=== PATIENT | female | born 1965 | race Two or more races ===

== ENCOUNTER 2017-10-22 12:55 | Emergency (ER) | payer OTHER ==
[~2017-10-22] VITALS: Ht 165.1 cm; Wt 93.5 kg
[~2017-10-22 12:55] MED LIST: OXYC-302 PO; SENN1TAB68 PO
[2017-10-22] MEDS ORDERED: MORPHINE SULFATE 4 MG/ML, 1ML ONE (13:55)
[2017-10-22] MEDS ORDERED: SODIUM CHLORIDE FLUSH 10ML SYR IVF ONE (14:00)
[2017-10-22] MEDS ORDERED: MORPHINE SULFATE 4 MG/ML, 1ML IVPush PRN (14:00)
[2017-10-22 14:04] LABS: BASOPHILS # (AUTO) 0.08 x10^3/uL (0-0.1); BASOPHILS % (AUTO) 1 % (0-1); EOSINOPHILS # (AUTO) 0.37 x10^3/uL (0-0.4); EOSINOPHILS % (AUTO) 4 % (1-7); LYMPHOCYTES # (AUTO) 2.61 x10^3/uL (1-3.4); LYMPHOCYTES % (AUTO) 28 % (22-44); MD NO; MEAN CORPUSCULAR HGB CONC 33.8 g/dL (32.4-35.8); MEAN CORPUSCULAR VOLUME 91.6 fL (80-100); MEAN PLATELET VOLUME 7.7 fL (7.4-10.4); MONOCYTES # (AUTO) 0.66 x10^3/uL (0.2-0.8); MONOCYTES % (AUTO) 7 % (2-9); NEUTROPHILS # (AUTO) 5.61 x10^3/uL (1.8-6.8); NEUTROPHILS % (AUTO) 60 % (42-75); PLATELET COUNT 201 x10^3/uL (130-400); RED CELL DISTRIBUTION WIDTH 14.2 % (9.6-15.2)
[2017-10-22 14:11] LABS: INTERNATIONAL NORMALIZED RATIO 0.96 (0.93-1.1)
[2017-10-22 14:31] LABS: ALANINE AMINOTRANSFERASE 20 U/L (12-78); ALBUMIN 3.5 g/dL (3.4-5.0); ANION GAP 7 mmol/L (5-15); CALCIUM 8.7 mg/dL (8.5-10.1); CHLORIDE 110 mmol/L (98-107); CREATININE 0.81 mg/dL (0.55-1.02)
[2017-10-22 14:35] LABS: ALKALINE PHOSPHATASE 76 U/L (45-117); BILIRUBIN,TOTAL 0.3 mg/dL (0.2-1.0); TOTAL PROTEIN 7.4 g/dL (6.4-8.2)
[2017-10-22] MEDS ORDERED: OMNIPAQUE 350 MG/ML, 100ML BOTTLE ONE (15:28)
[2017-10-22 17:00] VITALS: BP 177/91
== END 2017-10-22 18:06 | disposition home or self-care (01) ==
LOC: ED 15:52
DX: I80.8 Phlebitis and thrombophlebitis of other sites (principal); R42 Dizziness and giddiness; F17.200 Nicotine dependence, unspecified, uncomplicated; Z90.49 Acquired absence of other specified parts of digestive tract
CPT/HCPCS: 36415; 74177; 80053; 83690; 84703; 85025; 85610; 85730; 96374; 99285; Q9967

== ENCOUNTER 2017-11-21 18:54 | Emergency (ER) | payer OTHER ==
[~2017-11-21] VITALS: Ht 165.1 cm; Wt 91.0 kg
[2017-11-21 19:45] LABS: BASOPHILS # (AUTO) 0.08 x10^3/uL (0-0.1); BASOPHILS % (AUTO) 1 % (0-1); EOSINOPHILS # (AUTO) 0.42 x10^3/uL (0-0.4); EOSINOPHILS % (AUTO) 4 % (1-7); LYMPHOCYTES # (AUTO) 3.18 x10^3/uL (1-3.4); LYMPHOCYTES % (AUTO) 32 % (22-44); MD NO; MEAN CORPUSCULAR HEMOGLOBIN 30.3 pg (27.0-34.8); MEAN CORPUSCULAR HGB CONC 33.2 g/dL (32.4-35.8); MEAN CORPUSCULAR VOLUME 91.1 fL (80-100); MEAN PLATELET VOLUME 7.7 fL (7.4-10.4); MONOCYTES # (AUTO) 0.73 x10^3/uL (0.2-0.8); MONOCYTES % (AUTO) 7 % (2-9); NEUTROPHILS # (AUTO) 5.51 x10^3/uL (1.8-6.8); NEUTROPHILS % (AUTO) 56 % (42-75); PLATELET COUNT 226 x10^3/uL (130-400); RED BLOOD COUNT 4.49 x10^6/uL (3.82-5.3); RED CELL DISTRIBUTION WIDTH 14.1 % (9.6-15.2)
[2017-11-21 19:54] LABS: ALANINE AMINOTRANSFERASE 19 U/L (12-78); ALBUMIN 3.3 g/dL (3.4-5.0); ANION GAP 7 mmol/L (5-15); CALCIUM 8.8 mg/dL (8.5-10.1); CHLORIDE 110 mmol/L (98-107); CREATININE 0.78 mg/dL (0.55-1.02)
[2017-11-21 19:56] LABS: ALKALINE PHOSPHATASE 71 U/L (45-117); BILIRUBIN,TOTAL 0.3 mg/dL (0.2-1.0); TOTAL PROTEIN 7.1 g/dL (6.4-8.2)
[2017-11-21 20:23] VITALS: BP 124/66
== END 2017-11-21 21:12 | disposition home or self-care (01) ==
LOC: ED 21:05
DX: R20.2 Paresthesia of skin (principal); R51 Headache
CPT/HCPCS: 36415; 70450; 80053; 85025; 93005; 99285

== ENCOUNTER 2018-01-12 17:55 | Inpatient (IN) | payer OTHER ==
[~2018-01-12] VITALS: Ht 165.1 cm; Wt 97.4 kg
[2018-01-12] MEDS ORDERED: DIPHENHYDRAMINE 50 MG/ML, 1ML ONE (18:56)
[2018-01-12] MEDS ORDERED: MORPHINE SULFATE 4 MG/ML, 1ML ONE (18:56)
[2018-01-12] MEDS ORDERED: CARBAMAZEPINE 200 MG TABLET ONE (18:56)
[2018-01-12] MEDS ORDERED: ONDANSETRON 2MG/ML, 2ML ONE (18:57)
[2018-01-12] MEDS ORDERED: METOCLOPRAMIDE 5 MG/ML, 2ML ONE (18:58)
[2018-01-12 19:00] LABS: BASOPHILS # (AUTO) 0.05 x10^3/uL (0-0.1); BASOPHILS % (AUTO) 1 % (0-1); EOSINOPHILS # (AUTO) 0.25 x10^3/uL (0-0.4); EOSINOPHILS % (AUTO) 3 % (1-7); LYMPHOCYTES # (AUTO) 2.02 x10^3/uL (1-3.4); LYMPHOCYTES % (AUTO) 24 % (22-44); MD NO; MEAN CORPUSCULAR HEMOGLOBIN 31.2 pg (27.0-34.8); MEAN CORPUSCULAR VOLUME 91.5 fL (80-100); MEAN PLATELET VOLUME 7.6 fL (7.4-10.4); MONOCYTES # (AUTO) 0.59 x10^3/uL (0.2-0.8); MONOCYTES % (AUTO) 7 % (2-9); NEUTROPHILS # (AUTO) 5.38 x10^3/uL (1.8-6.8); NEUTROPHILS % (AUTO) 65 % (42-75); PLATELET COUNT 193 x10^3/uL (130-400); RED BLOOD COUNT 4.63 x10^6/uL (3.82-5.3); RED CELL DISTRIBUTION WIDTH 14.5 % (9.6-15.2)
[2018-01-12] MEDS ORDERED: ONDANSETRON 2MG/ML, 2ML IVPush ONE (19:00)
[2018-01-12] MEDS ORDERED: CARBAMAZEPINE 200 MG TABLET PO ONE (19:00)
[2018-01-12] MEDS ORDERED: MORPHINE SULFATE 4 MG/ML, 1ML IVPush PRN (19:00)
[2018-01-12] MEDS ORDERED: DIPHENHYDRAMINE 50 MG/ML, 1ML IVPush ONE (19:00)
[2018-01-12] MEDS ORDERED: METOCLOPRAMIDE 5 MG/ML, 2ML IVPush ONE (19:00)
[2018-01-12 19:12] LABS: ALANINE AMINOTRANSFERASE 19 U/L (12-78); ALBUMIN 3.8 g/dL (3.4-5.0); ANION GAP 9 mmol/L (5-15); CALCIUM 8.4 mg/dL (8.5-10.1); CHLORIDE 110 mmol/L (98-107)
[2018-01-12 19:16] LABS: ALKALINE PHOSPHATASE 64 U/L (45-117); BILIRUBIN,TOTAL 0.5 mg/dL (0.2-1.0); TOTAL PROTEIN 7.6 g/dL (6.4-8.2); TROPONIN I < 0.015 ng/mL (0.000-0.045)
[2018-01-12 19:46] LABS: AMPHETAMINE SCREEN, URINE Negative (Negative); BARBITURATE SCREEN, URINE Negative (Negative); BENZODIAZEPINE SCREEN, URINE Negative (Negative); CANNABINOID SCREEN, URINE Negative (Negative); COCAINE SCREEN, URINE Negative (Negative); METHADONE SCREEN, URINE Negative (Negative); OPIATE SCREEN, URINE Negative (Negative)
[2018-01-12] MEDS ORDERED: CARB200T PO (21:04)
[2018-01-12] MEDS ORDERED: GABA300C10 PO (21:04)
[2018-01-12] MEDS ORDERED: SODIUM CHLORIDE 0.9% 1,000 ML IV SCH (21:04)
[2018-01-12] MEDS ORDERED: NITROGLYCERIN 0.4 MG BOTTLE (25 TABS) SL PRN (21:30)
[2018-01-12] MEDS ORDERED: ONDANSETRON ODT 4 MG PO PRN (21:30)
[2018-01-12] MEDS ORDERED: POLYETHYLENE GLYCOL 17 GM PACKET PO PRN (21:30)
[2018-01-12 22:14] VITALS: BP 114/76
[2018-01-12] MEDS: NICOTINE 14MG/24 HR PATCH.TD24 TD SCH (23:04)
[2018-01-12] MEDS: ENOXAPARIN 30 MG/0.3 ML SQ SCH (23:04)
[2018-01-13 02:21] VITALS: BP 114/77
[2018-01-13 02:33] LABS: CHLORIDE 111 mmol/L (98-107)
[2018-01-13 02:34] LABS: TROPONIN I < 0.015 ng/mL (0.000-0.045)
[2018-01-13 02:46] LABS: ANION GAP 10 mmol/L (5-15); CALCIUM 8.1 mg/dL (8.5-10.1)
[2018-01-13 06:24] VITALS: BP 114/77
[2018-01-13] MEDS ORDERED: MIDAZOLAM 1 MG/ML, 5ML ONE (08:53)
[2018-01-13] MEDS ORDERED: NALOXONE 1 MG/ML, 2ML ONE (08:53)
[2018-01-13] MEDS ORDERED: FLUMAZENIL 0.1 MG/1 ML, 5ML ONE (08:53)
[2018-01-13] MEDS ORDERED: FENTANYL PF 100 MCG/2ML ONE (08:53)
[2018-01-13] MEDS ORDERED: CARBAMAZEPINE 200 MG TABLET PO SCH ×2 (09:00)
[2018-01-13] MEDS ORDERED: GABAPENTIN 300 MG CAPSULE PO SCH (09:00)
[2018-01-13] MEDS ORDERED: GADOBUTROL 10 MMOL/10 ML VIAL ONE (09:57)
[2018-01-13] MEDS ORDERED: REGADENOSON 0.4 MG/5 ML SYRINGE ONE (11:26)
[2018-01-13 12:16] VITALS: BP 130/85
[2018-01-13] MEDS: morphine SULFATE 10 MG/ML, 1ML IVPush PRN (15:47)
[2018-01-13 17:30] VITALS: BP 123/77
[2018-01-13] MEDS: ACETAMINOPHEN 325 MG TABLET PO PRN (19:20)
[2018-01-13] MEDS: NICOTINE 14MG/24 HR PATCH.TD24 TD SCH (20:49)
[2018-01-13] MEDS: ENOXAPARIN 30 MG/0.3 ML SQ SCH (20:49)
[2018-01-13] MEDS: GABAPENTIN 300 MG CAPSULE PO SCH (20:50)
[2018-01-13 21:33] VITALS: BP 106/70
[2018-01-13] MEDS ORDERED: GABAPENTIN 300 MG CAPSULE PO ONE (22:00)
[2018-01-14 01:25] VITALS: BP 121/77
[2018-01-14] MEDS: ACETAMINOPHEN 325 MG TABLET PO PRN (03:16)
[2018-01-14] MEDS: morphine SULFATE 10 MG/ML, 1ML IVPush PRN ×2 (04:18→09:37)
[2018-01-14 06:10] LABS: CHOL/HDL RATIO 4.8; LDL/HDL RATIO 2.3 (0.5-3.0)
[2018-01-14 06:51] VITALS: BP 117/78
[2018-01-14] MEDS: GABAPENTIN 300 MG CAPSULE PO SCH ×2 (09:23→16:24)
[2018-01-14] MEDS: ENOXAPARIN 30 MG/0.3 ML SQ SCH (09:23)
[2018-01-14 13:13] VITALS: BP 140/85
== END 2018-01-14 18:14 | disposition home or self-care (01) | DRG 74 ==
LOC: ED 20:55 → EDIP 21:00 → 5SO 22:18
PROVIDERS: ADMIT Family Medicine; ATTEND Family Medicine
DX: G50.0 Trigeminal neuralgia (principal); R55 Syncope and collapse; F17.200 Nicotine dependence, unspecified, uncomplicated; D17.0 Benign lipomatous neoplasm of skin and subcutaneous tissue of head, face and neck; Z83.3 Family history of diabetes mellitus; Z80.0 Family history of malignant neoplasm of digestive organs; E66.9 Obesity, unspecified; Z68.35 Body mass index [BMI] 35.0-35.9, adult; F17.210 Nicotine dependence, cigarettes, uncomplicated; G25.3 Myoclonus; I10 Essential (primary) hypertension; I25.2 Old myocardial infarction; I44.1 Atrioventricular block, second degree; Z95.1 Presence of aortocoronary bypass graft
CPT/HCPCS: 36415; 70450; 70553; 71045; 78452; 80048; 80053; 80061; 80156; 80307; 84443; 84484; 85025; 93005; 93017; 93306; 95819; 96374; 96375; 99156; 99157; A9585; J1650; J2250; J2405; J2785; J3010; A9502; C9898; J1200; J2270; J2310; J2765

== ENCOUNTER → 2018-02-02 | Outpatient (CLI) | payer OTHER ==
[~2018-02-02] MED LIST changes: +CARB200T PO; +GABA300C10 PO
== END | disposition home or self-care (01) ==
LOC: CARD 12:19
PROVIDERS: ATTEND Psychiatry & Neurology Neurology
DX: G93.40 Encephalopathy, unspecified (principal); G40.409 Other generalized epilepsy and epileptic syndromes, not intractable, without status epilepticus
CPT/HCPCS: 95819

== ENCOUNTER 2018-04-13 21:01 | Observation (INO) | payer OTHER ==
[~2018-04-13] VITALS: Ht 167.6 cm; Wt 70.0 kg
[2018-04-13 21:24] LABS: BASOPHILS # (AUTO) 0.06 x10^3/uL (0-0.1); BASOPHILS % (AUTO) 1 % (0-1); EOSINOPHILS # (AUTO) 0.24 x10^3/uL (0-0.4); EOSINOPHILS % (AUTO) 3 % (1-7); LYMPHOCYTES # (AUTO) 2.03 x10^3/uL (1-3.4); LYMPHOCYTES % (AUTO) 22 % (22-44); MD NO; MEAN CORPUSCULAR HEMOGLOBIN 31.6 pg (27.0-34.8); MEAN CORPUSCULAR HGB CONC 34.1 g/dL (32.4-35.8); MEAN CORPUSCULAR VOLUME 92.5 fL (80-100); MEAN PLATELET VOLUME 7.7 fL (7.4-10.4); MONOCYTES # (AUTO) 0.65 x10^3/uL (0.2-0.8); MONOCYTES % (AUTO) 7 % (2-9); NEUTROPHILS # (AUTO) 6.42 x10^3/uL (1.8-6.8); NEUTROPHILS % (AUTO) 68 % (42-75); PLATELET COUNT 211 x10^3/uL (130-400); RED BLOOD COUNT 4.56 x10^6/uL (3.82-5.3); RED CELL DISTRIBUTION WIDTH 14.3 % (9.6-15.2)
[2018-04-13 21:37] LABS: ALBUMIN 3.5 g/dL (3.4-5.0); ANION GAP 10 mmol/L (5-15); CALCIUM 8.3 mg/dL (8.5-10.1); CHLORIDE 109 mmol/L (98-107); CREATININE 0.83 mg/dL (0.55-1.02); SALICYLATE LEVEL 2.3 mg/dL (2.8-20.0)
[2018-04-13 21:45] LABS: ACETAMINOPHEN < 2 mcg/mL (10-30)
[2018-04-13 21:53] LABS: METHADONE SCREEN, URINE Negative (Negative); OPIATE SCREEN, URINE Negative (Negative)
[2018-04-13 21:58] LABS: AMPHETAMINE SCREEN, URINE Negative (Negative); BARBITURATE SCREEN, URINE Negative (Negative); BENZODIAZEPINE SCREEN, URINE Negative (Negative); CANNABINOID SCREEN, URINE Negative (Negative); COCAINE SCREEN, URINE Negative (Negative)
[2018-04-14] MEDS ORDERED: LORazepam 1MG TABLET ONE (00:39)
[2018-04-14] MEDS ORDERED: LORazepam 1MG TABLET PO ONE (01:00)
[2018-04-14] MEDS ORDERED: NICOTINE 7 MG/24 HR PATCH.TD24 TD SCH ×3 (01:30→09:00)
[2018-04-14] MEDS ORDERED: ACETAMINOPHEN 325 MG TABLET PO PRN (01:30)
[2018-04-14] MEDS ORDERED: IBUPROFEN 600 MG TABLET PO PRN (01:30)
[2018-04-14] MEDS ORDERED: DOCUSATE 100 MG CAPSULE PO PRN (01:30)
[2018-04-14] MEDS ORDERED: TRAZODONE 50MG TABLET PO PRN (01:30)
[2018-04-14 02:13] VITALS: BP 143/91
[2018-04-14 08:30] VITALS: BP 125/76
[2018-04-14] MEDS: CARBAMAZEPINE 200 MG TABLET PO SCH ×2 (08:40→08:44)
[2018-04-14] MEDS: GABAPENTIN 300 MG CAPSULE PO SCH ×2 (08:40→08:45)
[2018-04-14] MEDS ORDERED: SERTRALINE 50MG TABLET PO SCH (09:00)
[2018-04-14] MEDS ORDERED: LISI-167 PO (12:11)
[2018-04-14] MEDS ORDERED: SERT50TA5 PO (12:11)
[2018-04-14 12:33] LABS: HEMOGLOBIN A1C 7.6 % (4.2-6.3)
== END 2018-04-14 14:10 ==
LOC: ED 21:40 → EDIP 22:28 → 2N 04-14 01:55
PROVIDERS: ADMIT Internal Medicine; ATTEND Internal Medicine
DX: R45.851 Suicidal ideations (principal); G50.0 Trigeminal neuralgia; F32.9 Major depressive disorder, single episode, unspecified; F17.200 Nicotine dependence, unspecified, uncomplicated; E11.9 Type 2 diabetes mellitus without complications; I10 Essential (primary) hypertension; F41.9 Anxiety disorder, unspecified; S61.512A Laceration without foreign body of left wrist, initial encounter; Z91.5 Personal history of self-harm; Z80.0 Family history of malignant neoplasm of digestive organs
CPT/HCPCS: 36415; 80048; 80307; 80329; 82040; 83036; 85025; 99285; G0378; G0480

== ENCOUNTER 2018-04-30 19:06 | Emergency (ER) | payer OTHER ==
[~2018-04-30] VITALS: Ht 165.1 cm; Wt 100.3 kg
[~2018-04-30 19:06] MED LIST changes: +LISI-167 PO; +SERT50TA5 PO
[2018-04-30] MEDS ORDERED: EPINEPHRINE 1 MG/ML, 1ML SQ ONE (21:00)
[2018-04-30] MEDS ORDERED: EPINEPHRINE 1 MG/ML, 1ML ONE (21:06)
[2018-04-30] MEDS ORDERED: hydrOXyzine 50MG TABLET ONE (21:07)
[2018-04-30 21:15] LABS: BASOPHILS # (AUTO) 0.02 x10^3/uL (0-0.1); BASOPHILS % (AUTO) 0 % (0-1); EOSINOPHILS # (AUTO) 0.24 x10^3/uL (0-0.4); EOSINOPHILS % (AUTO) 5 % (1-7); LYMPHOCYTES # (AUTO) 0.76 x10^3/uL (1-3.4); LYMPHOCYTES % (AUTO) 15 % (22-44); MD NO; MEAN CORPUSCULAR HEMOGLOBIN 31.4 pg (27.0-34.8); MEAN CORPUSCULAR HGB CONC 34.1 g/dL (32.4-35.8); MEAN CORPUSCULAR VOLUME 92.2 fL (80-100); MONOCYTES # (AUTO) 0.31 x10^3/uL (0.2-0.8); MONOCYTES % (AUTO) 6 % (2-9); NEUTROPHILS # (AUTO) 3.69 x10^3/uL (1.8-6.8); NEUTROPHILS % (AUTO) 74 % (42-75); PLATELET COUNT 124 x10^3/uL (130-400)
[2018-04-30 21:25] LABS: ALBUMIN 3.4 g/dL (3.4-5.0); ANION GAP 9 mmol/L (5-15); CALCIUM 8.6 mg/dL (8.5-10.1); CHLORIDE 107 mmol/L (98-107); CREATININE 0.73 mg/dL (0.55-1.02)
[2018-04-30 21:56] VITALS: BP 102/50
== END 2018-04-30 22:55 | disposition home or self-care (01) ==
LOC: ED 22:00
DX: L50.9 Urticaria, unspecified (principal); F17.200 Nicotine dependence, unspecified, uncomplicated
CPT/HCPCS: 36415; 80048; 82040; 85025; 96372; 99284; J0171; J7512; Q0177

== ENCOUNTER 2018-11-20 16:23 | Emergency (ER) | payer OTHER ==
[~2018-11-20] VITALS: Ht 165.1 cm; Wt 105.7 kg
[~2018-11-20 16:23] MED LIST changes: +SERT50TA28 PO; -SERT50TA5 PO
[2018-11-20 16:24] VITALS: BP 133/86
[2018-11-20] MEDS ORDERED: DIPH,PERTUSS(ACELL),TET VAC/PF 0.5 ML IM-VACC ONE ×2 (16:30→16:39)
[2018-11-20] MEDS ORDERED: LIDOCAINE-MPF 1%, 5ML INFIL ONE (16:30)
[2018-11-20] MEDS ORDERED: LIDOCAINE-MPF 1%, 5ML ONE (16:39)
[2018-11-20] MEDS ORDERED: CEFAZOLIN 1,000 MG IM ONE (17:00)
[2018-11-20] MEDS ORDERED: HYDROcodone/APAP 5/325 TABLET PO PRN (17:00)
--- NOTE | 2018-11-20 17:17 | NUR ---
FINGERSTICK 127
[2018-11-20] MEDS ORDERED: CEFAZOLIN 1,000 MG ONE (17:19)
[2018-11-20] MEDS ORDERED: HYDROcodone/APAP 5/325 TABLET ONE ×2 (17:20→17:30)
--- NOTE | 2018-11-20 17:55 | NUR ---
LEFT HAND DRESSED WITH BACITRACIN AND BANDAID. DISCHARGE INSTRUCTIONS GIVEN TO PT.
== END 2018-11-20 17:58 | disposition home or self-care (01) ==
LOC: ED 17:55
DX: S61.442A Puncture wound with foreign body of left hand, initial encounter (principal); X58.XXXA Exposure to other specified factors, initial encounter; Y93.89 Activity, other specified; Y92.098 Other place in other non-institutional residence as the place of occurrence of the external cause; Y99.8 Other external cause status
CPT/HCPCS: 73130; 82962; 90471; 90715; 96372; 99284; J0690

== ENCOUNTER 2018-12-20 11:35 | Emergency (ER) | payer OTHER ==
[~2018-12-20] VITALS: Ht 165.1 cm; Wt 108.0 kg
[2018-12-20 11:39] VITALS: BP 132/85
[2018-12-20] MEDS ORDERED: KETOROLAC 30 MG/1 ML ONE (12:15)
[2018-12-20] MEDS ORDERED: DIAZEPAM 5 MG TABLET ONE (12:17)
[2018-12-20] MEDS ORDERED: KETOROLAC 30 MG/1 ML IM ONE (12:30)
[2018-12-20] MEDS ORDERED: DIAZEPAM 5 MG TABLET PO ONE (12:30)
== END 2018-12-20 13:41 | disposition home or self-care (01) ==
LOC: ED 13:35
DX: S29.012A Strain of muscle and tendon of back wall of thorax, initial encounter (principal); M25.522 Pain in left elbow; M54.2 Cervicalgia; F17.200 Nicotine dependence, unspecified, uncomplicated; F32.9 Major depressive disorder, single episode, unspecified; F44.9 Dissociative and conversion disorder, unspecified; Z90.49 Acquired absence of other specified parts of digestive tract; W01.0XXA Fall on same level from slipping, tripping and stumbling without subsequent striking against object, initial encounter; Y93.89 Activity, other specified; Y92.89 Other specified places as the place of occurrence of the external cause; Y99.8 Other external cause status
CPT/HCPCS: 71046; 73080; 96372; 99283; J1885

== ENCOUNTER 2018-12-28 15:04 | Emergency (ER) | payer OTHER ==
[~2018-12-28] VITALS: Ht 165.1 cm; Wt 108.4 kg
[2018-12-28 15:06] VITALS: BP 115/80
--- NOTE | 2018-12-28 15:20 | NUR ---
entered room to find only pt belongings. pt in restroom at this time.
[2018-12-28] MEDS ORDERED: KETOROLAC 30 MG/1 ML IM ONE (16:00)
[2018-12-28] MEDS ORDERED: SODIUM CHLORIDE FLUSH 10ML SYR IVF ONE (16:00)
[2018-12-28] MEDS ORDERED: ONDANSETRON ODT 4 MG PO ONE (16:00)
[2018-12-28 16:27] LABS: BASOPHILS # (AUTO) 0.01 x10^3/uL (0-0.1); BASOPHILS % (AUTO) 0 % (0-1); EOSINOPHILS # (AUTO) 0.23 x10^3/uL (0-0.4); EOSINOPHILS % (AUTO) 2 % (1-7); LYMPHOCYTES # (AUTO) 1.94 x10^3/uL (1-3.4); LYMPHOCYTES % (AUTO) 21 % (22-44); MD NO; MEAN CORPUSCULAR HEMOGLOBIN 30.6 pg (27.0-34.8); MEAN CORPUSCULAR HGB CONC 33.4 g/dL (32.4-35.8); MEAN CORPUSCULAR VOLUME 91.6 fL (80-100); MEAN PLATELET VOLUME 7.5 fL (7.4-10.4); MONOCYTES # (AUTO) 0.48 x10^3/uL (0.2-0.8); MONOCYTES % (AUTO) 5 % (2-9); NEUTROPHILS # (AUTO) 6.83 x10^3/uL (1.8-6.8); NEUTROPHILS % (AUTO) 72 % (42-75); PLATELET COUNT 190 x10^3/uL (130-400); RED BLOOD COUNT 4.85 x10^6/uL (3.82-5.3); RED CELL DISTRIBUTION WIDTH 13.6 % (9.6-15.2)
[2018-12-28] MEDS ORDERED: KETOROLAC 60 MG/2 ML ONE (16:34)
[2018-12-28] MEDS ORDERED: ONDANSETRON 2MG/ML, 2ML ONE (16:34)
[2018-12-28 16:36] LABS: ALANINE AMINOTRANSFERASE 22 U/L (12-78); ALBUMIN 3.5 g/dL (3.4-5.0); ANION GAP 7 mmol/L (5-15); CALCIUM 8.7 mg/dL (8.5-10.1); CHLORIDE 111 mmol/L (98-107); CREATININE 0.86 mg/dL (0.55-1.02)
[2018-12-28 16:38] LABS: ALKALINE PHOSPHATASE 88 U/L (45-117); BILIRUBIN,TOTAL 0.3 mg/dL (0.2-1.0); TOTAL PROTEIN 7.4 g/dL (6.4-8.2)
[2018-12-28] MEDS ORDERED: KETOROLAC 30 MG/1 ML IVPush ONE (17:00)
[2018-12-28] MEDS ORDERED: ONDANSETRON 2MG/ML, 2ML IVPush ONE (17:00)
[2018-12-28 17:19] LABS: MICROSCOPIC NOT IND
[2018-12-28 17:31] LABS: CULTURE INDICATED? NO
[2018-12-28] MEDS ORDERED: OMNIPAQUE 350 MG/ML, 100ML BOTTLE ONE (17:35)
--- NOTE | 2018-12-28 18:10 | NUR ---
PT RESTING IN BED AT THIS TIME. FRIEND IS AT BEDSIDE AND PT STATES AT THIS TIME POSITIVE RELIEF FROM PAIN.
== END 2018-12-28 18:24 | disposition home or self-care (01) ==
LOC: ED 17:54
DX: S22.32XA Fracture of one rib, left side, initial encounter for closed fracture (principal); M54.2 Cervicalgia; M25.512 Pain in left shoulder; M25.572 Pain in left ankle and joints of left foot; R10.12 Left upper quadrant pain; F32.9 Major depressive disorder, single episode, unspecified; W01.0XXA Fall on same level from slipping, tripping and stumbling without subsequent striking against object, initial encounter; Y93.89 Activity, other specified; Y92.098 Other place in other non-institutional residence as the place of occurrence of the external cause; Y99.8 Other external cause status
CPT/HCPCS: 36415; 71101; 73030; 73610; 74177; 80053; 81003; 83690; 85025; 96374; 96375; 99284; J1885; J2405; Q9967

== ENCOUNTER 2019-07-01 13:24 | Outpatient (CLI) | payer OTHER | END 2019-07-01 23:59 | disposition home or self-care (01) | LOC: CFH 13:24 | PROVIDERS: ATTEND Internal Medicine Cardiovascular Disease | DX: R07.9 Chest pain, unspecified (principal); E11.9 Type 2 diabetes mellitus without complications; Z87.891 Personal history of nicotine dependence | CPT/HCPCS: 93306 ==

== ENCOUNTER → 2020-02-03 | Outpatient (CLI) | payer OTHER | END | disposition home or self-care (01) | LOC: RAD 13:25 | PROVIDERS: ATTEND Family Medicine | DX: M50.122 Cervical disc disorder at C5-C6 level with radiculopathy (principal); M48.02 Spinal stenosis, cervical region; M25.78 Osteophyte, vertebrae | CPT/HCPCS: 72050; 72141 ==

== ENCOUNTER 2020-03-06 19:46 | Emergency (ER) | payer OTHER ==
[~2020-03-06] VITALS: Ht 165.1 cm; Wt 108.1 kg
--- NOTE | 2020-03-06 19:58 | NUR ---
PT CAME INTO ED TONIGHT DUE TO RLQ ABDOMINAL PAIN. REPORTS ITS BEEN FOR 2-3 WEEKS, PAINFUL URINATION, BLOOD IN URINE. DENIES VOMITTING, CONFIRMS NAUSEA, DENIES PERIODS, STATES REGULAR BOWEL HABITS, LAST BM YESTERDAY, FLANK PAIN PRESENT ON RIGHT SIDE. NO PAIN ON LEFT SIDE. NAD. GRIMACING UPON PALPATION. PT WHEELED TO AND FROM RESTROOM FOR UA. UA SENT TO LAB. EUGENE TRONCOSO AT BS FOR EVAL AND POC. PT PLACED ON SPO2/BP MONITORING
[2020-03-06] MEDS ORDERED: CLON1TAB11 PO (20:06)
[2020-03-06] MEDS ORDERED: PRAZ5CAP2 PO (20:06)
[2020-03-06] MEDS ORDERED: CARB200T4 PO (20:06)
[2020-03-06] MEDS ORDERED: QUET200T4 PO (20:07)
[2020-03-06] MEDS ORDERED: FLUO40CA2 PO (20:07)
[2020-03-06] MEDS ORDERED: MORPHINE SULFATE 4 MG/ML, 1ML ONE (20:27)
[2020-03-06] MEDS ORDERED: ONDANSETRON 2MG/ML, 2ML ONE (20:27)
[2020-03-06] MEDS ORDERED: SODIUM CHLORIDE FLUSH 10ML SYR IVF ONE (20:30)
[2020-03-06] MEDS ORDERED: MORPHINE SULFATE 4 MG/ML, 1ML IVPush PRN (20:30)
[2020-03-06] MEDS ORDERED: ONDANSETRON 2MG/ML, 2ML IVPush ONE (20:30)
--- NOTE | 2020-03-06 20:32 | NUR ---
PT TO CT VIA ROD. MEDICATED PER AUG FOR PAIN, NAD, WCTM.
[2020-03-06 20:50] LABS: BASOPHILS # (AUTO) 0.04 x10^3/uL (0-0.1); BASOPHILS % (AUTO) 0 % (0-1); EOSINOPHILS # (AUTO) 0.17 x10^3/uL (0-0.4); EOSINOPHILS % (AUTO) 2 % (1-7); LYMPHOCYTES # (AUTO) 2.54 x10^3/uL (1-3.4); LYMPHOCYTES % (AUTO) 23 % (22-44); MD NO; MEAN CORPUSCULAR HEMOGLOBIN 30.1 pg (27.0-34.8); MEAN CORPUSCULAR HGB CONC 32.8 g/dL (32.4-35.8); MEAN CORPUSCULAR VOLUME 91.9 fL (80-100); MONOCYTES # (AUTO) 0.63 x10^3/uL (0.2-0.8); MONOCYTES % (AUTO) 6 % (2-9); NEUTROPHILS # (AUTO) 7.58 x10^3/uL (1.8-6.8); NEUTROPHILS % (AUTO) 69 % (42-75); PLATELET COUNT 236 x10^3/uL (130-400); RED CELL DISTRIBUTION WIDTH 14.1 % (9.6-15.2)
[2020-03-06 20:54] LABS: MICROSCOPIC NOT IND
[2020-03-06 20:56] LABS: ALANINE AMINOTRANSFERASE 23 U/L (12-78); ALBUMIN 3.7 g/dL (3.4-5.0); ANION GAP 8 mmol/L (5-15); CALCIUM 9.3 mg/dL (8.5-10.1); CHLORIDE 108 mmol/L (98-107)
[2020-03-06 20:59] LABS: ALKALINE PHOSPHATASE 106 U/L (45-117); BILIRUBIN,TOTAL 0.5 mg/dL (0.2-1.0); TOTAL PROTEIN 8.4 g/dL (6.4-8.2)
--- NOTE | 2020-03-06 21:40 | NUR ---
PT RESTING ON GURNEY, APPEARS COMFORTABLE, EYES CLOSED, EVEN AND UNLABORED RESPIRATIONS, NAD, GIVEN ADDITIONAL WARM BLANKET FOR COMFORT, DENIES ADDITIONAL NEEDS, WAITING ON LABS. WCTM.
[2020-03-06] MEDS ORDERED: KETOROLAC 30 MG/1 ML ONE (22:13)
[2020-03-06 22:15] VITALS: BP 146/67
--- NOTE | 2020-03-06 22:20 | NUR ---
Patient given discharge instructions and they have confirmed that they understand the instructions. Patient WHEELED TO DC DESK, NAD, DENIES ADDITIONAL QUESTIONS OR NEEDS. NO PT BELONGINGS LEFT IN ROOM AFTER DC.
[2020-03-06] MEDS ORDERED: KETOROLAC 30 MG/1 ML IVPush ONE (22:30)
== END 2020-03-06 22:59 ==
LOC: ED 20:27
DX: R10.31 Right lower quadrant pain (principal); E11.65 Type 2 diabetes mellitus with hyperglycemia; R11.0 Nausea; R30.0 Dysuria; R94.31 Abnormal electrocardiogram [ECG] [EKG]; Z90.49 Acquired absence of other specified parts of digestive tract
CPT/HCPCS: 36415; 74176; 80053; 81003; 83690; 85025; 93005; 96374; 96375; 99285; J1885; J2270; J2405

== ENCOUNTER 2020-12-21 23:18 | Inpatient (IN) | payer OTHER ==
[~2020-12-21] VITALS: Ht 165.1 cm; Wt 112.7 kg
[~2020-12-21 23:18] MED LIST changes: +CARB200T4 PO; +CLON1TAB11 PO; +FLUO40CA2 PO; -OXYC-302 PO; +OXYC1TAB14 PO; +PRAZ5CAP2 PO; +QUET200T4 PO
[2020-12-22 00:04] LABS: ALBUMIN 3.2 g/dL (3.4-5.0); ANION GAP 7 mmol/L (5-15); BASOPHILS % (AUTO) 1 % (0-1); CALCIUM 8.7 mg/dL (8.5-10.1); CHLORIDE 109 mmol/L (98-107); CREATININE 0.78 mg/dL (0.55-1.02); EOSINOPHILS % (AUTO) 2 % (1-7); LYMPHOCYTES % (AUTO) 27 % (22-44); MEAN CORPUSCULAR HEMOGLOBIN 30.8 pg (27.0-34.8); MEAN CORPUSCULAR HGB CONC 34.6 g/dL (32.4-35.8); MEAN PLATELET VOLUME 8.5 fL (7.4-10.4); MONOCYTES % (AUTO) 7 % (2-9); NEUTROPHILS % (AUTO) 63 % (42-75); PLATELET COUNT 204 x10^3/uL (130-400); RED BLOOD COUNT 4.71 x10^6/uL (3.82-5.3); RED CELL DISTRIBUTION WIDTH 14.8 % (9.6-15.2)
[2020-12-22 00:07] LABS: ALANINE AMINOTRANSFERASE 25 U/L (12-78); ALKALINE PHOSPHATASE 105 U/L (45-117); BILIRUBIN,TOTAL 0.4 mg/dL (0.2-1.0); TOTAL PROTEIN 7.2 g/dL (6.4-8.2)
--- NOTE | 2020-12-22 01:19 | NUR ---
PT STATES SHE HAS A BLISTER ON LEFT HEEL SINCE 4 WEEKS AGO. REPORTS SHE SAW A DOCTOR RAQUEL AND HE DRAINED IT AND NOW IT HAS GOTTEN WORSE. PT REPORTS THEY DID NOT ORDER HER ATB. PT REPORTS BEING IN A LOT OF PAIN. BLLISTER LOOKS QUATER SIZE AND LOOKS RED AND SWOLLEN. HX OF DIABETES. PT ATTACHED TO MONITORS. VSS. GIL. AT BEDSIDE FO EVAL. BED IN LOW POSITION, RAILS ENGAGED. CALL LIGHT ON LAP. PT FRIEND AT BEDSIDE. DONA.
[2020-12-22] MEDS ORDERED: PIPERACILLIN/TAZO 3.375 GM in DEXTROSE 5% 50 ML IVPB ONE (01:30)
[2020-12-22] MEDS ORDERED: SODIUM CHLORIDE 0.9% 1,000ML IVBOLUS ONE (01:30)
[2020-12-22] MEDS ORDERED: VANCOMYCIN PER PHARMACY MC ONE (01:30)
[2020-12-22] MEDS ORDERED: HYDROmorphone 2 MG/ML, 1ML IVPush PRN (02:00)
[2020-12-22] MEDS ORDERED: VANCOMYCIN PER PHARMACY MC PRN (02:00)
[2020-12-22] MEDS ORDERED: MELATONIN 5 MG TABLET PO PRN (02:00)
[2020-12-22] MEDS ORDERED: ONDANSETRON 2MG/ML, 2ML IVPush PRN (02:00)
[2020-12-22] MEDS ORDERED: POLYETHYLENE GLYCOL 17 GM PACKET PO PRN (02:00)
[2020-12-22] MEDS ORDERED: LABETALOL 5MG/ML, 20ML IVPush PRN (02:00)
[2020-12-22] MEDS ORDERED: ACETAMINOPHEN 325 MG TABLET PO PRN (02:00)
[2020-12-22] MEDS ORDERED: VANCOMYCIN 2,000 MG in SODIUM CHLORIDE 0.9% 500 ML IV SCH (02:00)
[2020-12-22] MEDS ORDERED: PHARMACOKINETIC CONSULTATION MC ONE (02:00)
[2020-12-22 04:07] VITALS: BP 115/81
[2020-12-22] MEDS ORDERED: LITHIUM CARBONATE PO (05:15)
[2020-12-22] MEDS ORDERED: PRAZ5CAP PO (05:15)
[2020-12-22] MEDS ORDERED: DIVA500T17 PO ×2 (05:15)
[2020-12-22] MEDS ORDERED: METF500T27 PO (05:15)
[2020-12-22] MEDS ORDERED: ALBUTEROL INH (05:15)
[2020-12-22] MEDS: CEFEPIME 2 GM in DEXTROSE 5% 100 ML IV SCH ×3 (05:53→22:20)
[2020-12-22] MEDS ORDERED: LITHIUM CARBONATE 300 MG CAPSULE PO ONE (06:00)
[2020-12-22] MEDS ORDERED: QUETIAPINE 100MG TABLET PO ONE (06:00)
[2020-12-22] MEDS ORDERED: PHARMACOKINETIC MONITORING MC PRN (06:00)
[2020-12-22] MEDS ORDERED: PRAZOSIN 5 MG CAPSULE PO ONE (06:00)
[2020-12-22] MEDS ORDERED: DIVALPROEX 500 MG TABLET.DR PO ONE (06:00)
[2020-12-22 06:20] LABS: BASOPHILS % (AUTO) 1 % (0-1); EOSINOPHILS % (AUTO) 3 % (1-7); LYMPHOCYTES % (AUTO) 30 % (22-44); MEAN CORPUSCULAR HEMOGLOBIN 30.2 pg (27.0-34.8); MEAN CORPUSCULAR HGB CONC 33.2 g/dL (32.4-35.8); MEAN PLATELET VOLUME 8.4 fL (7.4-10.4); MONOCYTES % (AUTO) 8 % (2-9); NEUTROPHILS % (AUTO) 59 % (42-75); PLATELET COUNT 186 x10^3/uL (130-400); RED BLOOD COUNT 4.52 x10^6/uL (3.82-5.3); RED CELL DISTRIBUTION WIDTH 15.2 % (9.6-15.2)
[2020-12-22 06:28] LABS: ANION GAP 6 mmol/L (5-15); C-REACTIVE PROTEIN, QUANT 0.42 mg/dL (0.02-0.49); CALCIUM 8.4 mg/dL (8.5-10.1); CHLORIDE 109 mmol/L (98-107); CREATININE 0.79 mg/dL (0.55-1.02)
[2020-12-22 07:20] VITALS: BP 103/69
[2020-12-22] MEDS: FLUOXETINE HCL 20 MG CAPSULE PO SCH (09:16)
[2020-12-22] MEDS: metFORMIN 500 MG TABLET PO SCH ×2 (09:21→22:20)
[2020-12-22] MEDS: DIVALPROEX 500 MG TABLET.DR PO SCH ×2 (09:21→16:28)
[2020-12-22] MEDS: GABAPENTIN 300 MG CAPSULE PO SCH ×2 (09:21→22:20)
[2020-12-22] MEDS ORDERED: VANCOMYCIN 2,100 MG in SODIUM CHLORIDE 0.9% 500 ML IV ONE (11:00)
[2020-12-22 12:10] LABS: HCT (SEDRATE) 39.2 % (34.6-47.8)
[2020-12-22 13:12] VITALS: BP 114/85
[2020-12-22] MEDS: NICOTINE 14MG/24 HR PATCH.TD24 TD SCH (16:28)
[2020-12-22] MEDS ORDERED: LITHIUM CARBONATE 300 MG TABLET.ER PO SCH (17:30)
[2020-12-22 19:08] VITALS: BP 111/75
[2020-12-22] MEDS: QUETIAPINE 200 MG TABLET PO SCH (22:20)
[2020-12-22] MEDS: PRAZOSIN 5 MG CAPSULE PO SCH (22:29)
[2020-12-23 01:10] VITALS: BP 123/82
[2020-12-23 04:40] LABS: BASOPHILS % (AUTO) 1 % (0-1); EOSINOPHILS % (AUTO) 3 % (1-7); LYMPHOCYTES % (AUTO) 27 % (22-44); MEAN CORPUSCULAR HEMOGLOBIN 30.7 pg (27.0-34.8); MEAN CORPUSCULAR HGB CONC 34.1 g/dL (32.4-35.8); MEAN PLATELET VOLUME 8.2 fL (7.4-10.4); MONOCYTES % (AUTO) 8 % (2-9); NEUTROPHILS % (AUTO) 61 % (42-75); PLATELET COUNT 179 x10^3/uL (130-400); RED BLOOD COUNT 4.45 x10^6/uL (3.82-5.3)
[2020-12-23 04:54] LABS: ALANINE AMINOTRANSFERASE 22 U/L (12-78); ALBUMIN 2.9 g/dL (3.4-5.0); ANION GAP 4 mmol/L (5-15); CALCIUM 8.5 mg/dL (8.5-10.1); CHLORIDE 109 mmol/L (98-107); CREATININE 0.55 mg/dL (0.55-1.02)
[2020-12-23 04:56] LABS: ALKALINE PHOSPHATASE 79 U/L (45-117); BILIRUBIN,TOTAL 0.4 mg/dL (0.2-1.0); TOTAL PROTEIN 6.6 g/dL (6.4-8.2)
[2020-12-23] MEDS: CEFEPIME 2 GM in DEXTROSE 5% 100 ML IV SCH (05:33)
[2020-12-23] MEDS ORDERED: VANCOMYCIN 1,700 MG in SODIUM CHLORIDE 0.9% 250 ML IV SCH (06:00)
[2020-12-23 07:20] VITALS: BP 108/75
[2020-12-23] MEDS: FLUOXETINE HCL 20 MG CAPSULE PO SCH (08:07)
[2020-12-23] MEDS: GABAPENTIN 300 MG CAPSULE PO SCH ×2 (08:07→21:29)
[2020-12-23] MEDS: DIVALPROEX 500 MG TABLET.DR PO SCH ×2 (08:07→16:59)
[2020-12-23] MEDS: metFORMIN 500 MG TABLET PO SCH ×2 (08:07→21:30)
[2020-12-23] MEDS: ALBUTEROL HFA 90 MCG/SPRAY INH PRN ×2 (09:03→14:19)
[2020-12-23] MEDS ORDERED: HYDROmorphone 1 MG/ML, 1ML INJ IV ONE (10:00)
[2020-12-23] MEDS ORDERED: AMPICILLIN/SULBACTAM 3 GM in SODIUM CHLORIDE 0.9% 100 ML IV SCH (10:00)
[2020-12-23] MEDS ORDERED: ACETAMINOPHEN 325 MG TABLET PO PRN (10:00)
[2020-12-23] MEDS: HEPARIN 5,000 UNITS/ML, 1ML SQ SCH ×2 (10:33→18:26)
[2020-12-23] MEDS: INSULIN LISPRO 100 UNITS/ML, PEN SQ-INSULIN SCH ×3 (11:26→21:28)
[2020-12-23] MEDS ORDERED: GADOTERATE 7.5 MMOL/15ML SYR ONE (13:05)
[2020-12-23] MEDS ORDERED: GADOTERATE 5 MMOL/10ML SYR ONE (13:05)
[2020-12-23 14:38] VITALS: BP 116/83
[2020-12-23 16:06] VITALS: BP 129/90
[2020-12-23] MEDS: morphine SULFATE 10 MG/ML, 1ML IV PRN ×2 (16:22→16:59)
[2020-12-23] MEDS: NICOTINE 14MG/24 HR PATCH.TD24 TD SCH (16:59)
[2020-12-23 17:18] VITALS: BP 128/84
[2020-12-23 17:50] LABS: TROPONIN I < 0.015 ng/mL (0.000-0.045)
[2020-12-23] MEDS ORDERED: LORazepam 2 MG/ML, 1ML IVPush PRN (18:00)
[2020-12-23] MEDS: LEVETIRACETAM 1,000 MG in SODIUM CHLORIDE 0.9% 100 ML IV SCH (18:41)
[2020-12-23 20:08] VITALS: BP 115/79
[2020-12-23] MEDS ORDERED: INSULIN GLARGINE 100 UNITS/ML, PEN SQ-INSULIN SCH (21:00)
[2020-12-23] MEDS: PRAZOSIN 5 MG CAPSULE PO SCH (21:30)
[2020-12-23] MEDS: QUETIAPINE 200 MG TABLET PO SCH (21:30)
[2020-12-23] MEDS ORDERED: CALCIUM CARBONATE 500 MG TAB.CHEW PO PRN (22:30)
[2020-12-24] MEDS: HEPARIN 5,000 UNITS/ML, 1ML SQ SCH ×2 (02:27→09:43)
[2020-12-24 02:33] VITALS: BP 125/86
[2020-12-24 06:31] VITALS: BP 115/79
[2020-12-24] MEDS: LEVETIRACETAM 1,000 MG in SODIUM CHLORIDE 0.9% 100 ML IV SCH (06:53)
[2020-12-24] MEDS: INSULIN LISPRO 100 UNITS/ML, PEN SQ-INSULIN SCH ×2 (07:00→11:10)
[2020-12-24] MEDS: ALBUTEROL HFA 90 MCG/SPRAY INH PRN (07:43)
[2020-12-24] MEDS ORDERED: DIVALPROEX 500 MG TABLET.DR PO SCH ×2 (08:30→17:30)
[2020-12-24] MEDS: metFORMIN 500 MG TABLET PO SCH (08:59)
[2020-12-24] MEDS: FLUOXETINE HCL 20 MG CAPSULE PO SCH (08:59)
[2020-12-24] MEDS: GABAPENTIN 300 MG CAPSULE PO SCH (08:59)
[2020-12-24 09:11] VITALS: BP 131/81
[2020-12-24] MEDS: OXYcodone IR 5MG TABLET PO PRN ×2 (09:12→13:52)
[2020-12-24] MEDS ORDERED: ACET325T26 PO (11:05)
[2020-12-24] MEDS ORDERED: METF500T27 PO (11:05)
[2020-12-24] MEDS ORDERED: DIVA500T17 PO ×2 (11:05)
[2020-12-24] MEDS ORDERED: INSU100I11 SQ-INSULIN (11:05)
[2020-12-24] MEDS ORDERED: NICO-486 TD (11:05)
[2020-12-24] MEDS ORDERED: INSU100I13 SQ-INSULIN (11:05)
== END 2020-12-24 15:30 | disposition home or self-care (01) | DRG 638 ==
LOC: ED 12-22 05:14 → EDIP 12-22 05:16 → 4NW 12-22 05:27 → DCLOUNGE 12-24 15:00
PROVIDERS: ADMIT Internal Medicine; ATTEND Internal Medicine
DX: E11.69 Type 2 diabetes mellitus with other specified complication (principal); L03.116 Cellulitis of left lower limb; Z68.41 Body mass index [BMI] 40.0-44.9, adult; M86.9 Osteomyelitis, unspecified; S96.812A Strain of other specified muscles and tendons at ankle and foot level, left foot, initial encounter; E66.01 Morbid (severe) obesity due to excess calories; E11.65 Type 2 diabetes mellitus with hyperglycemia; F17.210 Nicotine dependence, cigarettes, uncomplicated; F31.9 Bipolar disorder, unspecified; F20.9 Schizophrenia, unspecified; G40.909 Epilepsy, unspecified, not intractable, without status epilepticus; M54.2 Cervicalgia; G89.29 Other chronic pain; J45.909 Unspecified asthma, uncomplicated; M77.9 Enthesopathy, unspecified; Z80.0 Family history of malignant neoplasm of digestive organs; Z79.899 Other long term (current) drug therapy; Z79.891 Long term (current) use of opiate analgesic; Z79.01 Long term (current) use of anticoagulants; Z98.1 Arthrodesis status; Z90.49 Acquired absence of other specified parts of digestive tract; Z88.8 Allergy status to other drugs, medicaments and biological substances; Z83.3 Family history of diabetes mellitus; Z79.4 Long term (current) use of insulin; X58.XXXA Exposure to other specified factors, initial encounter; Y93.89 Activity, other specified; Y92.89 Other specified places as the place of occurrence of the external cause; Y99.8 Other external cause status
CPT/HCPCS: 36415; 71045; 80048; 80053; 80164; 80178; 82962; 83036; 83605; 83735; 84145; 84484; 85025; 85651; 86140; 87040; 93005; 96374; G0378; J0295; J1170; J1644; J1953; J2543; J3370; A9575; J1815; J2270; J7030; J7040; J7050